=== PATIENT | female | born 1980 | race Caucasian/White ===

== ENCOUNTER 2016-11-25 15:15 | Emergency (ER) | payer MEDICAID ==
[~2016-11-25] VITALS: Ht 167.6 cm; Wt 135.2 kg
[2016-11-25 15:17] VITALS: BP 131/84; PULSE 101; RESP 14; TEMP 98.2; O2SAT 97
--- NOTE | 2016-11-25 15:20 | NUR ---
Pt placed in ER bed 06 and to gown. Pt report received from ARELY Akbar. Pt c/o abdominal pain localized to LUQ and to Left Flank x 3 weeks. Pt states that pain increases after eating, but symptoms keep getting worse. Pt c/o nausea.
--- NOTE | 2016-11-25 15:35 | NUR ---
Dr. Drake at bedside to assess pt.
[2016-11-25 15:42] LABS: BILIRUBIN,URINE NEGATIVE (NEGATIVE); BLOOD, URINE NEGATIVE (NEGATIVE); CLARITY/URINE CLOUDY (CLEAR); COLOR,URINE YELLOW (YELLOW); GLUCOSE,URINE NEGATIVE (NEGATIVE); KETONES,URINE NEGATIVE (NEGATIVE); LEUKOCYTE ESTERASE ,URINE 3+ (NEGATIVE); NITRITE, URINE NEGATIVE (NEGATIVE); PH,URINE 7.5 (5.0-8.0); PROTEIN URINE 1+ (NEGATIVE); UROBILINOGEN,URINE 0.2 (0.2-1.0)
[2016-11-25 16:24] LABS: BACTERIA,URINE MODERATE /HPF (None Seen); RBC,URINE 0-3 /HPF (0-3); WBC,URINE 20-50 /HPF (0-3)
[2016-11-25 16:25] LABS: MUCUS,URINE 3+ /LPF (None Seen); TRICHOMONAS,URINE Few /HPF (None Seen)
[2016-11-25] MEDS ORDERED: LIDOCAINE VISCOUS 2%, 15 ML UDC MM ONE (16:30)
[2016-11-25] MEDS ORDERED: BELLADONNA ALKALOIDS/PHENOBARB 5 ML UDC PO ONE (16:30)
[2016-11-25] MEDS ORDERED: MAG-AL HYDROX/SIMETH 30 ML UDC PO ONE (16:30)
--- NOTE | 2016-11-25 16:30 | NUR ---
No needs verbalized at this time.
[2016-11-25 16:55] LABS: BASOPHILS % (AUTO) 0.2 % (0.0-2.0); EOSINOPHILS # (AUTO) 0.2 K/uL (0.0-0.4); EOSINOPHILS % (AUTO) 2.4 % (0.0-4.0); HEMATOCRIT 36.7 % (36-48); HEMOGLOBIN 12.2 g/dL (12.0-16.0); LYMPHOCYTES # (AUTO) 1.4 K/uL (1.0-5.5); LYMPHOCYTES % (AUTO) 14.9 % (20.5-51.5); MEAN CORPUSCULAR HEMOGLOBIN 28 pg (27-31); MEAN CORPUSCULAR HGB CONC 33 % (32-36); MEAN CORPUSCULAR VOLUME 85 fL (79.0-98.0); MONOCYTES # (AUTO) 0.4 K/uL (0.0-1.0); MONOCYTES % (AUTO) 3.8 % (1.7-9.3); NEUTROPHILS # (AUTO) 7.5 K/uL (1.8-7.7); NEUTROPHILS % (AUTO) 78.7 % (40.0-70.0); PLATELET COUNT (AUTO) 239 K/uL (130-430); RED BLOOD CELL COUNT(AUTO) 4.34 MIL/uL (4.2-6.2); RED CELL DISTRIBUTION WIDTH 13.7 % (9.0-15.0); WHITE BLOOD COUNT (AUTO) 9.5 K/uL (4.8-10.8)
[2016-11-25 17:21] LABS: CALCIUM 8.5 mg/dL (8.4-11.0); CREATININE 0.6 mg/dL (0.55-1.30); POTASSIUM 3.7 mmol/L (3.5-5.1)
[2016-11-25 17:25] LABS: ALBUMIN 3.6 g/dL (3.4-4.8); TOTAL BILIRUBIN 0.3 mg/dL (0.0-1.0); TOTAL PROTEIN, SERUM 7.3 g/dL (6.4-8.3)
[2016-11-25] MEDS ORDERED: KETOROLAC TROMETHAMINE 30 MG VIAL IM ONE (17:45)
--- NOTE | 2016-11-25 17:45 | NUR ---
Pt states that she feels better after medication.
--- NOTE | 2016-11-25 18:00 | NUR ---
Pt to CT.
--- NOTE | 2016-11-25 18:20 | NUR ---
Pt returns from CT.
--- NOTE | 2016-11-25 18:45 | NUR ---
Patient given written and verbal discharge instructions and verbalizes understanding. ER MD discussed with patient the results and treatment provided. Given copies of tests performed in ER. Patient in stable condition. ID arm band removed. Rx of FLAGYL AND CIPRO given. Patient educated on pain management and to follow up with PMD. Pain Scale 0/10. Opportunity for questions provided and answered.
[2016-11-25 18:49] VITALS: BP 129/81; PULSE 92; RESP 14; TEMP 98.2; O2SAT 99
== END 2016-11-25 19:20 | disposition home or self-care (01) ==
LOC: SED 15:15
DX: N39.0 Urinary tract infection, site not specified (principal); R10.13 Epigastric pain
CPT/HCPCS: 36415; 80053; 81000; 81025; 83690; 85025; 87086; 96372; 99284; J1885; J2001